=== PATIENT | female | born 1940 | race Caucasian/White ===

== ENCOUNTER 2016-09-14 08:27 | Day surgery (SDC) | payer BC ==
--- NOTE | ~2016-09-14 | EGD ---
EGD REPORT [facility] [address] [address] NAME: PAULA MONTALVO : [birth year] STATUS : REG [facility] PAT#: [id number] AGE: 76 ADM/REG DATE : 09/14/16 MR#: [id number] REPORT SERV DATE: 09/14/16 DICTATED BY: GAIL DIOP DATE: 09/14/16 REPORT STATUS : Draft TRANSCRIBED BY: [employer] DATE: 09/14/16 [facility] Patient Name: Paula Montalvo Date of : 1940 Attending MD: GAIL DIOP MD Procedure Date No Time: 09/14/2016 Procedure: Upper GI endoscopy Indications: Follow-up of acute gastric ulcer Referring MD: CATALINA LAWSON MD Medicines: Monitored Anesthesia Care Complications: No immediate complications. Procedure: Pre-Anesthesia Assessment: - ASA Grade Assessment: III - A patient with severe systemic disease. After obtaining informed consent, the endoscope was passed under direct vision. Throughout the procedure, the patient's blood pressure, pulse, and oxygen saturations were monitored continuously. The GIF [id number] was introduced through the mouth, and advanced to the second part of duodenum. The upper GI endoscopy was accomplished without difficulty. The patient tolerated the procedure well. Findings: The examined esophagus was normal. Patchy mildly erythematous mucosa without bleeding was found in the gastric antrum. Biopsies were taken with a cold forceps for histology. The duodenal bulb and 2nd part of the duodenum were normal. The cardia and gastric fundus were normal on retroflexion. Impression: - Normal esophagus. - Erythematous mucosa in the antrum. Biopsied. - Normal duodenal bulb and 2nd part of the duodenum. Recommendation: - Await pathology results. - Follow an antireflux regimen. - Patient has a contact number available for emergencies. The signs and symptoms of potential delayed complications were discussed with the patient. Return to normal activities tomorrow. Written discharge instructions were provided to the patient. - Regular diet. - Return to GI clinic PRN. Procedure Code(s): --- Professional --- EGD REPORT [facility] [address] [place] [address] [address] [place] [address] NAME: PAULA MONTALVO : 36 STATUS : REG [facility] PAT#: [id number] AGE: 76 ADM/REG DATE : 09/14/16 MR#: [id number] REPORT SERV DATE: 09/14/16 DICTATED BY: GAIL DIOP DATE: 09/14/16 REPORT STATUS : Draft TRANSCRIBED BY: [employer] DATE: 09/14/16 [id number], Esophagogastroduodenoscopy, flexible, transoral; with biopsy, single or multiple Diagnosis Code(s): --- Professional --- K31.9, Disease of stomach and duodenum, unspecified K25.3, Acute gastric ulcer without hemorrhage or perforation CPT copyright 2013 [employer]. All rights reserved. The codes documented in this report are preliminary and upon medical billing coder review may be revised to meet current compliance requirements. GAIL DIOP MD 09/14/2016 10:48 AM This report has been signed electronically. Number of Addenda: 0 Note Initiated On: 09/14/2016 10:33 AM [address] [facility] [place] [address]
[~2016-09-14 08:27] MED LIST: ASAB PO; CAT1 PO; COZAAR100 MG PO; CYANO1000T PO; FERROUS SULF325 M1 PO; FISH-EPA1000 MG PO; GLUCPH PO; LOPID6 PO; MAGOX4 PO; MULTI-VIT HP PO; NORV10 PO; OCUVITE PO; PAX20 PO; PRILOSEC40 MG PO
== END 2016-09-14 23:59 | disposition home or self-care (01) ==
LOC: DMU 08:27
PROVIDERS: Internal Medicine Gastroenterology
PROC: 0DB68ZX Excision of Stomach, Via Natural or Artificial Opening Endoscopic, Diagnostic (ICD-10-PCS; principal; 2016-09-14 10:00)
DX: K29.50 Unspecified chronic gastritis without bleeding (principal); K31.9 Disease of stomach and duodenum, unspecified; K25.3 Acute gastric ulcer without hemorrhage or perforation; I10 Essential (primary) hypertension; G47.33 Obstructive sleep apnea (adult) (pediatric); E11.9 Type 2 diabetes mellitus without complications; Z98.41 Cataract extraction status, right eye; Z98.42 Cataract extraction status, left eye; Z90.710 Acquired absence of both cervix and uterus; Z90.49 Acquired absence of other specified parts of digestive tract; Z90.89 Acquired absence of other organs
CPT/HCPCS: 82962; 88305